=== PATIENT | female | born 1945 | race Asian ===

== ENCOUNTER 2017-01-26 15:58 | Inpatient (IN) | payer MEDICARE, OTHER ==
[~2017-01-26] VITALS: Ht 157.5 cm; Wt 57.6 kg
[2017-01-26] MEDS ORDERED: LORazepam Inj 2mg/ml 1ml IV ONE (16:00)
[2017-01-26] MEDS ORDERED: ASPIR 8181 MG ORAL (16:01)
[2017-01-26] MEDS ORDERED: AMLODIPINE BESYL5 MG ORAL (16:01)
[2017-01-26] MEDS ORDERED: ATORVASTATIN CA20 MG ORAL (16:01)
--- NOTE | 2017-01-26 16:16 | Emergency Room Report ---
History of Present Illness General Chief Complaint: Dizziness Source: Patient Present Illness HPI The patient presents with dizziness. She has had it for a week. Is worsened over last hour. It's worse when she tries to ambulate. She feels worse today and is nauseated. She hasn't had any chest pain. She's not been vomiting but is retching. She was able to eat breakfast. There is no headache. No fever. Some tinnitus. The patient had similar symptoms 3 years ago and was told she had a stroke at that time. She had difficulty ambulating. She denies any weakness on one side of her body but feels generalized weakness. Just feels shaky as numbness or hands and feet. No change in bowels, dysuria, rashes. No diabetes. HTN. No bleeding problems. Allergies: Coded Allergies: No Known Allergies (Unverified , 01/26/17) Patient History Past Medical History: see triage record Social History Narrative at home Reviewed Nursing Documentation: PMH: Agreed, PSxH: Agreed Nursing Documentation-PMH Past Medical History: No History, Except For Hx Hypertension: Yes Hx Cerebrovascular Accident: Yes Review of Systems All Other Systems: negative except mentioned in HPI Physical Exam Vital Signs Date Time Temp Pulse Resp B/P Pulse Ox O2 Delivery O2 Flow Rate FiO2 01/26/17 15:55 98.1 89 16 168/89 99 Room Air Sp02 EP Interpretation: reviewed, normal General Appearance: well appearing, GCS 15, mild distress Head: normocephalic, atraumatic Eyes: bilateral eye EOMI, bilateral eye PERRL, bilateral eye normal inspection ENT: moist mucus membranes Neck: supple Respiratory: lungs clear, normal breath sounds Cardiovascular #1: regular rate, rhythm Cardiovascular #2: 2+ radial (R) Gastrointestinal: normal inspection, normal bowel sounds, non tender, no mass, non-distended Musculoskeletal: back normal, gait/station normal, normal range of motion Neurologic: alert, oriented x3, transcripter III-XII nml as tested, motor strength/tone normal, DTRs symmetric, sensory intact, cerebellar normal, normal gait, speech normal Psychiatric: anxious Skin: normal inspection, warm/dry Medical Decision Making Diagnostic Impression: Primary Impression: vertigo - r/o vertebrobasilar insufficiency Additional Impression: Hypokalemia ER Course Patient presents with vertigo it's been going on for a week. This worsened over last hour. Differential includes labyrinthitis, Mnire's disease, cerebellar stroke, viral syndrome amongst others. She is outside of the window for use of TPA if this were a CVA. However stat CT will be obtained. Her symptoms are more consistent with labyrinthine disease. However she needs to be evaluated for possible as cerebellar process. She was treated with Zofran and Ativan. Evaluation with labs, CT, EKG, chest x-ray. Labs significant for critically low potassium. This was ordered, though she did not tolerate IV. EKG, CXR and rest of labs unremarkable. CT with prior lacunar infarct. Improved with medicine, no longer retching but still feels dizziness. Admit tele for observation, re-evaluation (possibly neuro consult) and replacement of potassium - Dr. Chavez. Laboratory Tests Test 01/26/17 16:10 01/26/17 16:20 01/27/17 04:50 Urine Color Pale yellow Urine Appearance Clear Urine pH 8 (4.5-8.0) Urine Specific [place] 1.015 (1.005-1.035) Urine Protein 3+ (NEGATIVE) H Urine Glucose (UA) Negative (NEGATIVE) Urine Ketones Negative (NEGATIVE) Urine Occult Blood Negative (NEGATIVE) Urine Nitrite Negative (NEGATIVE) Urine Bilirubin Negative (NEGATIVE) Urine Urobilinogen Normal MG/DL (0.0-1.0) Urine Leukocyte Esterase 1+ (NEGATIVE) H Urine RBC 0-2 /HPF (0 - 2) Urine WBC 0-2 /HPF (0 - 2) Urine Squamous Epithelial Cells None /LPF (NONE/OCC) Urine Bacteria Few /HPF (NONE) White Blood Count 6.7 K/UL (4.8-10.8) 6.4 K/UL (4.8-10.8) Red Blood Count 4.87 M/UL (4.20-5.40) 4.79 M/UL (4.20-5.40) Hemoglobin 15.4 G/DL (12.0-16.0) 14.4 G/DL (12.0-16.0) Hematocrit 43.9 % (37.0-47.0) 42.9 % (37.0-47.0) Mean Corpuscular Volume 90 FL (80-99) 90 FL (80-99) Mean Corpuscular Hemoglobin 31.5 PG (27.0-31.0) H 30.0 PG (27.0-31.0) Mean Corpuscular Hemoglobin Concent 35.0 G/DL (32.0-36.0) 33.4 G/DL (32.0-36.0) Red Cell Distribution Width 12.5 % (11.6-14.8) 12.9 % (11.6-14.8) Platelet Count 227 K/UL (150-450) 237 K/UL (150-450) Mean Platelet Volume 6.0 FL (6.5-10.1) L 6.5 FL (6.5-10.1) Neutrophils (%) (Auto) 38.3 % (45.0-75.0) L 59.5 % (45.0-75.0) Lymphocytes (%) (Auto) 51.1 % (20.0-45.0) H 32.2 % (20.0-45.0) Monocytes (%) (Auto) 5.9 % (1.0-10.0) 5.9 % (1.0-10.0) Eosinophils (%) (Auto) 3.6 % (0.0-3.0) H 1.3 % (0.0-3.0) Basophils (%) (Auto) 1.2 % (0.0-2.0) 1.0 % (0.0-2.0) Erythrocyte Sedimentation Rate 8.0 MM/HR (0-30) Prothrombin Time 9.8 SEC (9.30-11.50) Prothrombin Time INR 1.0 (0.9-1.1) PTT 23 SEC (23-33) Sodium Level 141 mEQ/L (135-145) 143 mEQ/L (135-145) Potassium Level 2.5 mEQ/L (3.4-4.9) *L 3.8 mEQ/L (3.4-4.9) # Chloride Level 97 mEQ/L (98-107) L 103 mEQ/L (98-107) Carbon Dioxide Level 27 mEQ/L (20-30) 26 mEQ/L (20-30) Anion Gap 17 (5-15) H 14 (5-15) Blood Urea Nitrogen 10 mg/dL (7-23) 13 mg/dL (7-23) Creatinine 0.9 mg/dL (0.5-0.9) 0.9 mg/dL (0.5-0.9) Estimate Glomerular Filtration Rate mL/min (>60) mL/min (>60) Glucose Level 139 mg/dL (74-106) H 97 mg/dL (74-106) Calcium Level 9.1 mg/dL (8.6-10.2) 9.2 mg/dL (8.6-10.2) Total Bilirubin 0.5 mg/dL (0.0-1.2) 0.6 mg/dL (0.0-1.2) Aspartate Amino Transferase (AST) 32 U/L (5-40) 34 U/L (5-40) Alanine Aminotransferase (ALT) 24 U/L (3-33) 22 U/L (3-33) Alkaline Phosphatase 72 U/L (35-104) 61 U/L (35-104) Total Creatine Kinase 119 U/L (26-140) Troponin I < 0.30 ng/mL (<=0.30) Total Protein 7.8 g/dL (6.6-8.7) 7.1 g/dL (6.6-8.7) Albumin 4.6 g/dL (3.5-5.2) 4.1 g/dL (3.5-5.2) Globulin 3.2 g/dL 3.0 g/dL Albumin/Globulin Ratio 1.4 (1.0-2.7) 1.3 (1.0-2.7) EKG Diagnostic Results Rate: normal Rhythm: NSR ST Segments: no acute changes Rhythm Strip Diag. Results EP Interpretation: yes Rhythm: NSR, no PVC's, other - PACs Last Vital Signs Date Time Temp Pulse Resp B/P Pulse Ox O2 Delivery O2 Flow Rate FiO2 01/26/17 15:55 98.1 89 16 168/89 99 Room Air Status: improved Disposition: ADMITTED INPATIENT Condition: Serious Anatoly Maradiaga M.D. Jan 26, 2017 16:15
[2017-01-26 16:34] LABS: BASOPHILS % (AUTO) 1.2 % (0.0-2.0); EOSINOPHILS % (AUTO) 3.6 % (0.0-3.0); LYMPHOCYTES % (AUTO) 51.1 % (20.0-45.0); MEAN CORPUSCULAR HEMOGLOBIN 31.5 PG (27.0-31.0); MEAN CORPUSCULAR VOLUME 90 FL (80-99); MONOCYTES % (AUTO) 5.9 % (1.0-10.0); NEUTROPHILS % (AUTO) 38.3 % (45.0-75.0); PLATELET COUNT 227 K/UL (150-450); RED BLOOD COUNT 4.87 M/UL (4.20-5.40); RED CELL DISTRIBUTION WIDTH 12.5 % (11.6-14.8); WHITE BLOOD COUNT 6.7 K/UL (4.8-10.8)
[2017-01-26 16:35] LABS: APPEARANCE,URINE CLEAR; KETONES,URINE NEGATIVE (NEGATIVE); LEUKOCYTE ESTERASE ,URINE 1+ (NEGATIVE); NITRITE,URINE NEGATIVE (NEGATIVE); PH,URINE 8 (4.5-8.0); PROTEIN,URINE 3+ (NEGATIVE); UROBILINOGEN,URINE NORMAL MG/DL (0.0-1.0)
[2017-01-26 16:42] VITALS: BP 152/99
--- NOTE | 2017-01-26 16:43 | Diagnostic Imaging Report ---
Indication: Shortness of breath Technique: One view of the chest Comparison: none Findings: No acute infiltrates, effusions, or congestion. Tortuous calcified aorta. Normal heart size. Upper mediastinum unremarkable. Impression: No acute process.
[2017-01-26 16:45] LABS: PROTHROMBIN TIME 9.8 SEC (9.30-11.50)
[2017-01-26 16:51] LABS: ALANINE AMINOTRANSFERASE 24 U/L (3-33); ALBUMIN/GLOBULIN RATIO 1.4 (1.0-2.7); ASPARTATE AMINO TRANSFERASE 32 U/L (5-40); CALCIUM 9.1 mg/dL (8.6-10.2); CARBON DIOXIDE 27 mEQ/L (20-30); CHLORIDE 97 mEQ/L (98-107); CREATININE 0.9 mg/dL (0.5-0.9); HEMOLYSIS 8; SODIUM 141 mEQ/L (135-145); TOTAL PROTEIN 7.8 g/dL (6.6-8.7)
[2017-01-26 16:57] LABS: ANION GAP 17 (5-15)
[2017-01-26 17:02] LABS: TROPONIN I < 0.30 ng/mL (<=0.30)
[2017-01-26 17:06] LABS: POTASSIUM 2.5 mEQ/L (3.4-4.9)
[2017-01-26 17:19] VITALS: BP 152/77
[2017-01-26] MEDS ORDERED: KCl 10% 40mEq/30ml liquid ORAL STA (17:21)
[2017-01-26] MEDS ORDERED: Lidocaine 2% 100mg/5ml Carp IV ONE (18:00)
[2017-01-26 18:25] VITALS: BP 138/71
[2017-01-26 18:39] LABS: RBC,URINE 0-2 /HPF (0 - 2); WBC,URINE 0-2 /HPF (0 - 2)
[2017-01-26 18:40] LABS: BACTERIA,URINE FEW /HPF
[2017-01-26 20:25] VITALS: BP 128/68
[2017-01-26 22:25] VITALS: BP 115/57
[2017-01-27] VITALS (7 sets, daily range): BP systolic 118–133; BP diastolic 59–80
[2017-01-27 07:15] LABS: EOSINOPHILS % (AUTO) 1.3 % (0.0-3.0); LYMPHOCYTES % (AUTO) 32.2 % (20.0-45.0); MEAN CORPUSCULAR HGB CONC 33.4 G/DL (32.0-36.0); MEAN CORPUSCULAR VOLUME 90 FL (80-99); MEAN PLATELET VOLUME 6.5 FL (6.5-10.1); MONOCYTES % (AUTO) 5.9 % (1.0-10.0); NEUTROPHILS % (AUTO) 59.5 % (45.0-75.0); PLATELET COUNT 237 K/UL (150-450); RED BLOOD COUNT 4.79 M/UL (4.20-5.40); RED CELL DISTRIBUTION WIDTH 12.9 % (11.6-14.8); WHITE BLOOD COUNT 6.4 K/UL (4.8-10.8)
[2017-01-27 07:47] LABS: ALANINE AMINOTRANSFERASE 22 U/L (3-33); ALBUMIN/GLOBULIN RATIO 1.3 (1.0-2.7); ANION GAP 14 (5-15); ASPARTATE AMINO TRANSFERASE 34 U/L (5-40); CALCIUM 9.2 mg/dL (8.6-10.2); CARBON DIOXIDE 26 mEQ/L (20-30); CHLORIDE 103 mEQ/L (98-107); CREATININE 0.9 mg/dL (0.5-0.9); HEMOLYSIS 11; POTASSIUM 3.8 mEQ/L (3.4-4.9); SODIUM 143 mEQ/L (135-145); TOTAL PROTEIN 7.1 g/dL (6.6-8.7)
--- NOTE | 2017-01-27 08:42 | Diagnostic Imaging Report ---
Indications: Dizziness and vertigo Technique: Spiral acquisitions obtained through the brain. Angled axial and coronal 5 x 5 mm slices were reconstructed. Total dose length product 1404 mGycm. CTDI vol(s) 70 mGy. Dose reduction achieved using automated exposure control Comparison: None Findings: No acute hemorrhage or edema. No mass effect or midline shift. Normal schultz-white differentiation. Normal size, for age, ventricles and extra-axial CSF spaces. Old lacunar infarcts are seen in the right bearden radiata and right lentiform nucleus. Intact calvarium. Minimal ethmoid mucosal thickening. Intact calvarium. 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
--- NOTE | 2017-01-27 15:33 | General Progress Note ---
Progress Note Progress Note ENT Initial Consult note Dictated [id number] Pt seen and evaluated Pt 70% better with hydration and K replacement Suggest once K is stable, discharge home. PMD notified. SANGITA RYDER Jan 27, 2017 15:33
--- NOTE | 2017-01-27 17:27 | History and Physical Report ---
DATE OF ADMISSION: 01/26/2017 HISTORY OF PRESENT ILLNESS: The patient is here for vertigo and severely low potassium. The patient also had headache, vertigo, and vomiting at that time. The patient has history of CVA, hypertension, hyperlipidemia, and the patient also is weak but denied syncope. The patient denies double vision. Denies blurry vision. Denies fever or chills. Denies shortness of breath. Denies cough. The patient denies history of vertigo in the past. PAST MEDICAL HISTORY: Dizziness, history of hyperlipidemia, history of hypertension, history of cerebrovascular accident. PAST SURGICAL HISTORY: None. MEDICATIONS: The patient takes medications for cholesterol and headache. ALLERGIES: No known allergies. SOCIAL HISTORY: Denies history of drug or alcohol abuse. REVIEW OF SYSTEMS: HEENT: Did have headache x1. No blurry vision. No double vision. Chest: Denies shortness of breath. Denies cough. Cardiovascular: Denies chest pain. Denies orthopnea. Gastrointestinal: Reports vomiting x 1. No hematemesis. No constipation. No abdominal pain. Extremities: Denies pain. Central Nervous System: Lower extremity weakness. No diplopia. Mild headache and vertigo x1 at that time. PHYSICAL EXAMINATION: VITAL SIGNS: Temperature is 98.2, pulse 71, and blood pressure 128/68. HEENT: PERRLA. NECK: Supple. No lymphadenopathy. CHEST: Clear to auscultation. GASTROINTESTINAL: Soft, nontender, and nondistended. No organomegaly. EXTREMITIES: No edema. Moves all four extremities. Sensory intact to light touch. NEUROLOGIC: Reflexes are equal on both sides. Cranial nerves II through XII are intact. Motor 5/5 in all extremities. Sensory intact to light touch. LABORATORY DATA: WBC of 6.7, hemoglobin 15.4, and platelets of 227,000. Sodium 141, potassium 2.5, BUN of 10, creatinine 0.9, and glucose of 139. ASSESSMENT: 1. Severe hypokalemia. 2. Vertigo. I have asked Dr. Maxwell, Dr. Dempsey, and Dr. Alvarez to see the patient for the above-mentioned diagnoses and treatment. Angel Chavez M.D. DR: Eyad JOB#: [id number] CC:
--- NOTE | 2017-01-27 22:28 | Consultation ---
DATE OF CONSULTATION: 01/27/2017 HEAD AND NECK SURGERY/ENT CONSULTATION CONSULTING PHYSICIAN: Alireza Jacobs M.D. REFERRING PHYSICIAN: Angel Chavze M.D. INDICATION FOR CONSULTATION: This is a 71-year-old female, who over the last week has been feeling dizzy. She had chest pains, although she has not been vomiting. She has no headache and no sweats. She came in through the emergency room and three years ago she had similar symptoms and told she had a stroke at that time, although now she denies any weakness on her body and this concurs both with my discussion with her this afternoon and the discussion she had with the emergency room physician, which I have reviewed. PAST MEDICAL HISTORY: Hypertension and cerebrovascular accident, which I assume is the stroke three years ago, although not definitive in the reasoning. PAST SURGICAL HISTORY: No surgical history. She had a CT scan ordered of the head and that was negative for intracranial bleed or mass. It showed an old right-sided lacunar infarct as described. She also had a chest x-ray, which was normal. No acute process. ALLERGIES: She has no known allergies. MEDICATIONS: Her medications in the hospital in addition to an IV include acetaminophen, sodium chloride, lidocaine, potassium chloride, lorazepam, . She states she is 70% better. She is able to sit up. Her potassium on admission was 2.5. Her potassium today was 3.8. PHYSICAL EXAMINATION: HEENT: She has no nystagmus. Eyes, PERRLA and EOMI. Lips, tongue, pharynx and neck all normal. GENERAL: Height is 157.48 cm and weight 57.606. BMI 23.2. ASSESSMENT: 1. Vertigo. 2. Hypokalemia. DISCUSSION: I assume that this is probably due to being hypovolemic and hypokalemic because she has responded quickly with 70% improvement in less than 24 hours. Additional diagnosis can be viral labyrinthitis, although it will be unlikely to respond this quickly and she has not had anything like Antivert to control of the dizziness, just fluids and potassium. PLAN: If she does not reach 100%, please send her to my office. I will do an additional exam and consider a VNG. At this point, I do not feel that is necessary. Again, she responded so quickly as well as denying issues with hearing or tinnitus. Thank you very much for asking my opinion in the care and treatment of this patient. Alireza Jacobs M.D. DR: ABNER JOB#: [id number] CC:
[2017-01-28 04:00] VITALS: BP 124/72
[2017-01-28 07:45] VITALS: BP 120/88
[2017-01-28 11:42] LABS: ANION GAP 12 (5-15); CALCIUM 9.2 mg/dL (8.6-10.2); CARBON DIOXIDE 27 mEQ/L (20-30); CHLORIDE 101 mEQ/L (98-107); CREATININE 0.9 mg/dL (0.5-0.9); HEMOLYSIS 5; POTASSIUM 3.9 mEQ/L (3.4-4.9); SODIUM 140 mEQ/L (135-145)
--- NOTE | 2017-01-28 12:35 | General Progress Note ---
Assessment/Plan Problem List: (1) Dizziness ICD Codes: R42 - Dizziness and giddiness SNOMED: 492159125, 408028400 (2) Hypokalemia ICD Codes: E87.6 - Hypokalemia SNOMED: 05793902 Status: progressing Assessment/Plan dc home w hh for monitering Subjective ROS Limited/Unobtainable: Yes Allergies: Coded Allergies: No Known Allergies (Unverified , 01/26/17) Objective Last 24 Hour Vital Signs Date Time Temp Pulse Resp B/P Pulse Ox O2 Delivery O2 Flow Rate FiO2 01/28/17 07:45 97.7 63 20 120/88 96 Room Air 01/28/17 04:00 97.7 60 17 124/72 94 Room Air 01/27/17 23:59 97.5 58 17 118/66 93 Room Air 01/27/17 20:00 97.9 41 17 124/66 94 Room Air Intake and Output 01/27/17 01/28/17 19:00 07:00 Intake Total 420 ml Balance 420 ml Intake Oral 420 ml # Voids 3 7 Laboratory Tests 01/28/17 11:15: Sodium Level 140, Potassium Level 3.9, Chloride Level 101, Carbon Dioxide Level 27, Anion Gap 12, Blood Urea Nitrogen 15, Creatinine 0.9, Estimat Glomerular Filtration Rate , Glucose Level 171H, Calcium Level 9.2 Height (Feet): 5 Height (Inches): 2.00 Weight (Pounds): 127 General Appearance: alert Angel Chavez MD Jan 28, 2017 12:35
[2017-01-28] MEDS ORDERED: ASPIRIN EC81 MG ORAL (12:42)
[2017-01-28] MEDS ORDERED: LIPITOR20 MG ORAL (12:43)
[2017-01-28] MEDS ORDERED: AMLODIPINE BESYL5 MG ORAL (12:43)
--- NOTE | 2017-01-28 14:23 | Cardiology Report ---
APPROVED REPORT EKG Measurement Heart [id number] [place] [id number] Sinus rhythm with 1st degree AV block with premature atrial complexes Possible Left atrial enlargement Left ventricular hypertrophy Inferior infarct, age undetermined Abnormal ECG
--- NOTE | 2017-01-29 09:26 | Discharge Summary ---
Discharge Summary Hospital Course Date of Admission Jan 26, 2017 at 20:18 Date of Discharge Jan 28, 2017 at 13:00 Admitting Diagnosis vertigo/hypokalemia LYSSA Osuna is a 71 year old female who was admitted on Jan 26, 2017 at 20:18 for Vertigo/Kypokalemia Hospital Course [id number] Discharge Discharge Disposition Patient was discharged to Home with Home Health(06) Discharge Diagnoses: Alva Winslow NP Jan 29, 2017 09:26
--- NOTE | 2017-01-29 22:27 | Discharge Summary 2 SIG ---
DATE OF ADMISSION: 01/26/2017 DATE OF DISCHARGE: 01/28/2017 JUICE BAR TEAM MEMBER: Alireza Jacobs M.D. BRIEF HOSPITAL COURSE: The patient is a 71-year-old female with history of CVA, hypertension, and hyperlipidemia presented to ED complaining of dizziness that has been ongoing for a week and worsened over the last hour, worse when the patient ambulates and feels nauseated. She had similar symptoms three years ago and was told that she had a stroke at that time. She denied any generalized weakness, but has numbness on the hands and feet. On evaluation at the ED, CT scan showed a prior lacunar infarct. Labs showed hypokalemia, potassium level of 2.5. She was given Zofran and Ativan, but still felt dizzy. She was admitted for further workup. She was given potassium supplements and was seen by Dr. Jacobs. Dizziness was attributed to hypovolemia and hypokalemia. She was recommended outpatient followup for additional examination and VNG. Potassium level normalized and the patient was discharged home with home health. FINAL DIAGNOSES: 1. Vertigo, possible labyrinthitis. 2. Hypokalemia. Angel Chavez M.D. I have been assigned to dictate discharge summary on this account and I was not involved in the patient's management. Alva Winslow N.P. DR: BAL JOB#: [id number] CC:
== END 2017-01-28 13:00 | disposition home health service (06) | DRG 641 ==
LOC: EDBD 15:58 → EMR 16:33 → 4E 20:18 → EDBEDREQ 01-27 01:22
DX: E87.6 Hypokalemia (principal); I10 Essential (primary) hypertension; E78.5 Hyperlipidemia, unspecified; R42 Dizziness and giddiness; H83.09 Labyrinthitis, unspecified ear; Z86.73 Personal history of transient ischemic attack (TIA), and cerebral infarction without residual deficits
CPT/HCPCS: 36415; 70450; 71010; 80048; 80053; 81003; 82550; 84484; 85025; 85610; 85651; 85730; 93005; J2405